=== PATIENT | male | born 1990 | race Caucasian/White ===

== ENCOUNTER 2021-02-15 18:29 | Emergency (ER) | payer SELFPAY ==
[~2021-02-15] VITALS: Ht 188 cm; Wt 124.7 kg
[2021-02-15] MEDS ORDERED: TETANUS/DIPHTHERIA TOX ADULT 0.5 ML SYR IM ONE (18:45)
== END 2021-02-15 19:51 | disposition home or self-care (01) ==
LOC: ER 18:32
DX: S61.411A Laceration without foreign body of right hand, initial encounter (principal); W25.XXXA Contact with sharp glass, initial encounter; Y92.008 Other place in unspecified non-institutional (private) residence as the place of occurrence of the external cause
CPT/HCPCS: 90471; 90714; 99282